=== PATIENT | male | born 1950 | race African-American/Black ===

== ENCOUNTER 2017-07-24 09:34 | Emergency (ER) | payer SELFPAY ==
[~2017-07-24] VITALS: Ht 182.9 cm; Wt 116.1 kg
[2017-07-24 09:45] VITALS: BP 124/80
--- NOTE | 2017-07-24 10:03 | Emergency Room Report ---
History of Present Illness General Chief Complaint: Male Urogenital Problems Source: Patient Present Illness HPI 67-year-old male presents ED complaining of urinary retention. States he has "prostate problems". States he has been unable to urinate for "a long time". After further prompting patient states he has not been able to urinate for 1 day. Pain is sharp, 10 out of 10, suprapubic, nonradiating. Denies flank pain. Denies nausea or vomiting. States that he has required Heck catheter in the past. States that he has taken medication previously. Does not have a urologist at this time. No other aggravating or relieving factors. Denies any other associated symptoms Allergies: Coded Allergies: No Known Allergies (Unverified , 07/24/17) Patient History Past Medical History: other - BPH Past Surgical History: none Pertinent Family History: none Social History: Denies: smoking, alcohol use, drug use Immunizations: UTD Reviewed Nursing Documentation: PMH: Agreed; PSxH: Agreed Nursing Documentation-PMH Past Medical History: No History, Except For Review of Systems All Other Systems: negative except mentioned in HPI Physical Exam Vital Signs Date Time Temp Pulse Resp B/P (MAP) Pulse Ox O2 Delivery O2 Flow Rate FiO2 07/24/17 09:40 98.3 140 20 190/93 94 Room Air 98.2 Sp02 EP Interpretation: reviewed, normal General Appearance: alert, GCS 15, non-toxic, mild distress Head: normocephalic, atraumatic Eyes: bilateral eye normal inspection, bilateral eye PERRL ENT: hearing grossly normal, normal pharynx, no angioedema, normal voice Neck: full range of motion, supple/symm/no masses Respiratory: chest non-tender, lungs clear, normal breath sounds, speaking full sentences Cardiovascular #1: regular rate, rhythm, no edema Cardiovascular #2: 2+ carotid (R), 2+ carotid (L), 2+ radial (R), 2+ radial (L) , 2+ dorsalis pedis (R), 2+ dorsalis pedis (L) Gastrointestinal: normal bowel sounds, non tender, soft, non-distended, no guarding, no rebound Rectal: deferred Genitourinary: normal inspection, no CVA tenderness, other - suprapubic tenderness Musculoskeletal: back normal, gait/station normal, normal range of motion, non- tender Neurologic: alert, oriented x3, responsive, motor strength/tone normal, sensory intact, speech normal Psychiatric: judgement/insight normal, memory normal, mood/affect normal, no suicidal/homicidal ideation Reflexes: 3+ bicep (R), 3+ bicep (L), 3+ tricep (R), 3+ tricep (L), 3+ knee (R) , 3+ knee (L) Skin: normal color, no rash, warm/dry, well hydrated Lymphatic: no adenopathy Medical Decision Making Diagnostic Impression: Primary Impression: Urinary retention due to benign prostatic hyperplasia ER Course Hospital Course 67-year-old M presents to ED complaining of urinary retention. h/o BPH Differential diagnoses include: obstruction, UTI, BPH Clinical course Patient placed on stretcher. After initial history and physical I ordered heck cather with immediate relief of obstruction On reassessment patient feels better. Initially tachycardic which resolved. we will discharge on flomax, provide urology referral Diagnosis - urinary retention due to BPH Stable and discharged home with heck + leg bag, flomax, enema. Instructed to followup with PMD/urologist. Return to ED if symptoms recur or worsen Last Vital Signs Date Time Temp Pulse Resp B/P (MAP) Pulse Ox O2 Delivery O2 Flow Rate FiO2 07/24/17 09:40 98.3 140 20 190/93 94 Room Air 98.2 Status: improved Disposition: HOME, SELF-CARE Condition: Stable Scripts Na Phos,M-B/Na Phos,Di-Ba* (FLEET ENEMA*) 133 Ml Enema 133 ML RECTAL DAILY, #133 ML 0 Refills Prov: Eleuterio Lugo MD 07/24/17 Tamsulosin HCl (Flomax) 0.4 Mg Cap.er.24h 0.4 MG ORAL DAILY, #10 CAP Prov: Eleuterio Lugo MD 07/24/17 Referrals: NOT CHOSEN [facility]/,REFERRING (PCP) Eleuterio Lugo MD July 24, 2017 10:03
[2017-07-24] MEDS ORDERED: Norco 5mg/325mg tab ORAL ONE (10:15)
[2017-07-24] MEDS ORDERED: FLOMAX0.4 MG ORAL (10:17)
[2017-07-24] MEDS ORDERED: FLEET ENEMA133 ML RECTAL (10:17)
[2017-07-24 10:49] VITALS: BP 128/74
== END 2017-07-24 10:50 | disposition home or self-care (01) ==
LOC: EMR 09:49
DX: N40.1 Benign prostatic hyperplasia with lower urinary tract symptoms (principal); R33.8 Other retention of urine
CPT/HCPCS: 99284

== ENCOUNTER 2017-07-28 21:29 | Emergency (ER) | payer OTHER ==
[~2017-07-28] VITALS: Ht 182.9 cm; Wt 117.9 kg
[~2017-07-28 21:29] MED LIST: FLEET ENEMA133 ML RECTAL; FLOMAX0.4 MG ORAL
[2017-07-28] MEDS ORDERED: LANTUS SOL100 UNIT/1 SUBQ (21:38)
[2017-07-28] MEDS ORDERED: GABAPENTIN100 MG ORAL (21:38)
[2017-07-28] MEDS ORDERED: LISINOPRIL5 MG ORAL (21:38)
[2017-07-28] MEDS ORDERED: METFORMIN HCL500 M1 ORAL (21:38)
[2017-07-28 22:52] LABS: APPEARANCE,URINE SLIGHTLY CLOUDY; BILIRUBIN, URINE NEGATIVE (NEGATIVE); COLOR,URINE PALE YELLOW; GLUCOSE, URINE (UA) NEGATIVE (NEGATIVE); KETONES,URINE NEGATIVE (NEGATIVE); LEUKOCYTE ESTERASE ,URINE 3+ (NEGATIVE); NITRITE,URINE POSITIVE (NEGATIVE); PH,URINE 8 (4.5-8.0); PROTEIN,URINE 3+ (NEGATIVE); UROBILINOGEN,URINE NORMAL MG/DL (0.0-1.0)
[2017-07-28] MEDS ORDERED: CEPHALEXIN500 MG ORAL (23:06)
--- NOTE | 2017-07-28 23:13 | Emergency Room Report ---
History of Present Illness General Chief Complaint: Male Urogenital Problems Source: Patient Present Illness HPI 67-year-old male presenting with dysuria and suprapubic pain. Patient had Noel inserted a few days ago for BPH. Now complaining of pain with any urination. No fever no chills. No other complaints Allergies: Coded Allergies: No Known Allergies (Unverified , 07/24/17) Patient History Past Medical History: see triage record Past Surgical History: none Pertinent Family History: none Reviewed Nursing Documentation: PMH: Agreed; PSxH: Agreed Nursing Documentation-PMH Hx Diabetes: Yes Review of Systems All Other Systems: negative except mentioned in HPI Physical Exam Vital Signs Date Time Temp Pulse Resp B/P (MAP) Pulse Ox O2 Delivery O2 Flow Rate FiO2 07/28/17 21:33 98.4 80 18 174/93 98 Room Air 98.4 Sp02 EP Interpretation: reviewed, normal General Appearance: alert, GCS 15, non-toxic, mild distress Head: normocephalic, atraumatic Eyes: bilateral eye normal inspection, bilateral eye PERRL, bilateral eye EOMI ENT: normal ENT inspection, normal pharynx, normal voice, moist mucus membranes Neck: normal inspection, full range of motion, supple Respiratory: normal inspection, lungs clear, normal breath sounds, no respiratory distress, no retraction, no wheezing, speaking full sentences, chest symmetrical Cardiovascular #1: normal inspection, regular rate, rhythm, no edema, normal capillary refill Cardiovascular #2: 2+ radial (R), 2+ radial (L) Gastrointestinal: other - Suprapubic tenderness, Noel in place, draining clear suzanne urine Genitourinary: no CVA tenderness Musculoskeletal: normal inspection, back normal, normal range of motion, non- tender Neurologic: normal inspection, alert, oriented x3, responsive, motor strength/ tone normal, sensory intact, normal gait, speech normal Psychiatric: normal inspection, judgement/insight normal, memory normal Skin: normal inspection, normal color, no rash, warm/dry, well hydrated, normal turgor Medical Decision Making Diagnostic Impression: Primary Impression: UTI (urinary tract infection) Additional Impression: Urinary retention ER Course 67-year-old male with suprapubic pain DDX: Likely UTI at this time exam benign with the exception of mild suprapubic tenderness. He is nontoxic appearing Plan: Noel reinsertion UA ER course: Patient has remained stable during ED stay. Noel reinserted attach a leg bag Patient noted to have UTI. He is well-appearing otherwise, able to tolerate by mouth Disposition: Patient is to be discharged to home. Prescriptions given are Keflex Patient is instructed to follow up with their primary care doctor within 5 days. Patient is instructed to follow up with urology within 3 days. Strict return precautions discussed with patient such as fever, chills, worsening/severe pain, chest pain, SOB, nausea, vomiting, which may indicate severe illness. Patient verbalizes understanding and agrees with plan. Please note that this Emergency Department Report was dictated using [employer] nurse technology software, occasionally this can lead to erroneous entry secondary to interpretation by the dictation equipment Last Vital Signs Date Time Temp Pulse Resp B/P (MAP) Pulse Ox O2 Delivery O2 Flow Rate FiO2 07/28/17 21:33 98.4 80 18 174/93 98 Room Air 98.4 Disposition: HOME, SELF-CARE Condition: Improved Scripts Cephalexin* (KEFLEX*) 500 Mg Capsule 500 MG ORAL EVERY 6 HOURS for 7 Days, #28 CAP Prov: Christopher Rodney M.D. 07/28/17 Patient Instructions: Benign Prostatic Hypertrophy Additional Instructions: PLEASE FOLLOW UP WITH UROLOGY IN 1 WEEK Christopher Rodney M.D. July 28, 2017 23:13
[2017-07-28 23:18] VITALS: BP 176/92
== END 2017-07-28 23:15 | disposition home or self-care (01) ==
LOC: EMR 21:45
DX: N39.0 Urinary tract infection, site not specified (principal); R33.9 Retention of urine, unspecified; E11.9 Type 2 diabetes mellitus without complications
CPT/HCPCS: 81001; 99283

== ENCOUNTER 2017-08-06 17:41 | Emergency (ER) | payer OTHER ==
[~2017-08-06] VITALS: Ht 188 cm; Wt 120.7 kg
[~2017-08-06 17:41] MED LIST changes: +CEPHALEXIN500 MG ORAL; +GABAPENTIN100 MG ORAL; +LANTUS SOL100 UNIT/1 SUBQ; +LISINOPRIL5 MG ORAL; +METFORMIN HCL500 M1 ORAL
[2017-08-06 18:02] VITALS: BP 132/85
[2017-08-06] MEDS ORDERED: Norco 5mg/325mg tab ORAL ONE (18:30)
[2017-08-06 18:52] LABS: APPEARANCE,URINE SLIGHTLY CLOUDY; BILIRUBIN, URINE NEGATIVE (NEGATIVE); GLUCOSE, URINE (UA) NEGATIVE (NEGATIVE); KETONES,URINE NEGATIVE (NEGATIVE); LEUKOCYTE ESTERASE ,URINE 3+ (NEGATIVE); NITRITE,URINE POSITIVE (NEGATIVE); PH,URINE 5 (4.5-8.0); PROTEIN,URINE 2+ (NEGATIVE); UROBILINOGEN,URINE NORMAL MG/DL (0.0-1.0)
[2017-08-06 18:53] LABS: COLOR,URINE YELLOW
[2017-08-06] MEDS ORDERED: Levofloxacin 500mg tab ORAL ONE (20:15)
--- NOTE | 2017-08-06 20:17 | Emergency Room Report ---
History of Present Illness General Chief Complaint: General Complaint Source: Patient Present Illness HPI Patient had heck placed 07/24 for urinary retention. Was started on flomax at that time. Returned 07/28 with dysuria and started on antibiotics - keflex - (culture not done). H/O BPH. Still with dysuria and pain with heck and wants it out. Pain rated at 9/10. No fevers, chills, back pain, flank pain, hematuria. No NVD, chest pain, dyspnea. Moving bowels without problems. H/O diabetes. On metformin and insulin. Allergies: Coded Allergies: No Known Allergies (Unverified , 07/24/17) Patient History Past Medical History: see triage record Social History: Denies: smoking, alcohol use, drug use Social History Narrative recently out of [facility]p Reviewed Nursing Documentation: PMH: Agreed; PSxH: Agreed Nursing Documentation-PMH Past Medical History: No History, Except For Hx Diabetes: Yes Review of Systems All Other Systems: negative except mentioned in HPI Physical Exam Vital Signs Date Time Temp Pulse Resp B/P (MAP) Pulse Ox O2 Delivery O2 Flow Rate FiO2 08/06/17 17:52 97.5 83 19 132/85 96 Room Air 97.5 Sp02 EP Interpretation: reviewed, normal General Appearance: well appearing, no apparent distress, GCS 15 Head: normocephalic, atraumatic Eyes: bilateral eye normal inspection, bilateral eye PERRL ENT: hearing grossly normal, normal voice, moist mucus membranes Neck: full range of motion, supple Respiratory: no respiratory distress, speaking full sentences Gastrointestinal: normal inspection, normal bowel sounds, non tender Genitourinary: other - heck present, no discharge, uncircumcised Musculoskeletal: no calf tenderness Neurologic: alert, normal gait, grossly normal Psychiatric: mood/affect normal Skin: no rash Medical Decision Making Diagnostic Impression: Primary Impression: UTI (urinary tract infection) Qualified Codes: T83.511D - Infection and inflammatory reaction due to indwelling urethral catheter, subsequent encounter; N39.0 - Urinary tract infection, site not specified Additional Impressions: Diabetes Qualified Codes: E11.9 - Type 2 diabetes mellitus without complications; Z79.4 - keno terminal operator (current) use of insulin BPH (benign prostatic hyperplasia) Qualified Codes: N40.1 - Benign prostatic hyperplasia with lower urinary tract symptoms ER Course Patient with dysuria with Heck post use of Keflex for UTI. DDx: resistant infection, heck related UTI, prostatitis amongst others. No evidence of pyelonephritis. Discussed that might need heck replaced if removed. Needs UA with cultures, pyridium and analgesia. Able to urinate after heck removal. Accucheck 121. UA with pyuria. Levaquin begun here. Pain is improved. Patient stable for outpatient observation and treatment Laboratory Tests Test 08/06/17 18:39 Urine Color Yellow Urine Appearance Slightly cloudy Urine pH 5 (4.5-8.0) Urine Specific [place] 1.015 (1.005-1.035) Urine Protein 2+ (NEGATIVE) H Urine Glucose (UA) Negative (NEGATIVE) Urine Ketones Negative (NEGATIVE) Urine Occult Blood 5+ (NEGATIVE) H Urine Nitrite Positive (NEGATIVE) H Urine Bilirubin Negative (NEGATIVE) Urine Urobilinogen Normal MG/DL (0.0-1.0) Urine Leukocyte Esterase 3+ (NEGATIVE) H Urine RBC Tntc /HPF (0 - 0) H Urine WBC Tntc /HPF (0 - 0) H Urine Squamous Epithelial Cells None /LPF (NONE/OCC) Urine Bacteria Moderate /HPF (NONE) H Last Vital Signs Date Time Temp Pulse Resp B/P (MAP) Pulse Ox O2 Delivery O2 Flow Rate FiO2 08/06/17 20:45 97.5 78 19 132/85 96 Room Air 97.5 Status: improved Disposition: HOME, SELF-CARE Condition: Improved Scripts Phenazopyridine Hcl* (PYRIDIUM*) 100 Mg Tablet 100 MG ORAL THREE TIMES A DAY, #9 TAB Prov: Jaspreet Johnson M.D. 08/06/17 Hydrocodone Bit/Acetaminophen 5-325* (NORCO 5-325*) 1 Each Tablet 1 TAB ORAL Q6H PRN for For Pain, #10 TAB 0 Refills Prov: Jaspreet Johnson M.D. 08/06/17 Levofloxacin* (LEVAQUIN*) 500 Mg Tablet 500 MG ORAL DAILY, #7 TAB Prov: Jaspreet Johnson M.D. 08/06/17 Referrals: Eric ARRIETA,REFERRING (PCP) Jaspreet Johsnon M.D. Aug 06, 2017 20:17
[2017-08-06] MEDS ORDERED: NORCO 5-325 TA1 EACH ORAL (20:24)
[2017-08-06] MEDS ORDERED: PHENAZOPYRIDIN100 MG ORAL (20:24)
[2017-08-06] MEDS ORDERED: LEVAQUIN500 MG ORAL (20:24)
[2017-08-06 20:45] VITALS: BP 132/85
== END 2017-08-06 20:30 | disposition home or self-care (01) ==
LOC: EMR 18:48
DX: T83.511D Infection and inflammatory reaction due to indwelling urethral catheter, subsequent encounter (principal); N39.0 Urinary tract infection, site not specified; E11.9 Type 2 diabetes mellitus without complications; Z79.4 Long term (current) use of insulin; N40.1 Benign prostatic hyperplasia with lower urinary tract symptoms; Y84.6 Urinary catheterization as the cause of abnormal reaction of the patient, or of later complication, without mention of misadventure at the time of the procedure
CPT/HCPCS: 81003; 82962; 87086; 87181; 99284

== ENCOUNTER 2017-11-09 15:36 | Emergency (ER) | payer OTHER ==
[~2017-11-09] VITALS: Ht 182.9 cm; Wt 113.4 kg
[~2017-11-09 15:36] MED LIST changes: +LEVAQUIN500 MG ORAL; +NORCO 5-325 TA1 EACH ORAL; +PHENAZOPYRIDIN100 MG ORAL
[2017-11-09 15:48] VITALS: BP 153/95
[2017-11-09] MEDS ORDERED: Norco 5mg/325mg tab ORAL ONE (16:15)
[2017-11-09] MEDS ORDERED: Phenazopyridine 200mg tab ORAL ONE (16:15)
[2017-11-09 17:06] LABS: APPEARANCE,URINE CLEAR; BILIRUBIN, URINE NEGATIVE (NEGATIVE); COLOR,URINE PALE YELLOW; GLUCOSE, URINE (UA) 1+ (NEGATIVE); KETONES,URINE NEGATIVE (NEGATIVE); LEUKOCYTE ESTERASE ,URINE NEGATIVE (NEGATIVE); NITRITE,URINE NEGATIVE (NEGATIVE); PH,URINE 6 (4.5-8.0); PROTEIN,URINE 2+ (NEGATIVE); UROBILINOGEN,URINE NORMAL MG/DL (0.0-1.0)
--- NOTE | 2017-11-09 17:55 | Emergency Room Report ---
History of Present Illness General Chief Complaint: Male Urogenital Problems Source: Patient (Peggy Phan) Present Illness HPI 67-year-old male presents to the emergency department complaining of ability to urinate 24 hours in addition to distended bladder, 10 out of 10 in severity pain and dysuria. Patient reports dysuria preceded inability to urinate. Patient also states that he is out of his medications for which she is prescribed due to having BPH and high blood pressure. He states his that this happened once in the past. He has a urologist. Denies fevers, chills, nausea, vomiting or penile d/c. Denies constipation. (Peggy Phan) Allergies: Coded Allergies: No Known Allergies (Unverified , 07/24/17) Patient History Past Medical History: see triage record, other - BPH Past Surgical History: none Pertinent Family History: none Reviewed Nursing Documentation: PMH: Agreed; PSxH: Agreed (Peggy Phan) Nursing Documentation-PMH Hx Hypertension: Yes Hx Diabetes: Yes (Peggy Phan) Review of Systems All Other Systems: negative except mentioned in HPI (Peggy Phan) Physical Exam Vital Signs Date Time Temp Pulse Resp B/P (MAP) Pulse Ox O2 Delivery O2 Flow Rate FiO2 11/09/17 15:41 98.1 87 16 153/95 95 Room Air 98.1 Sp02 EP Interpretation: reviewed, normal General Appearance: no apparent distress, alert, GCS 15, non-toxic Head: normocephalic, atraumatic Eyes: bilateral eye normal inspection, bilateral eye PERRL ENT: hearing grossly normal, normal voice Neck: full range of motion Respiratory: lungs clear, normal breath sounds, speaking full sentences Cardiovascular #1: regular rate, rhythm, no edema Gastrointestinal: normal bowel sounds, distended - lower abdominal distention with tenderness Musculoskeletal: back normal, gait/station normal, normal range of motion, non- tender Neurologic: alert, oriented x3, responsive, motor strength/tone normal, sensory intact, speech normal, grossly normal Psychiatric: judgement/insight normal Skin: normal color, no rash, warm/dry, well hydrated Lymphatic: no adenopathy (Peggy Phan) Medical Decision Making PA Attestation Dr. Keller is my supervising Physician whom patient management has been discussed with. (Peggy Phna) Medicare Attestation The history of Denny Mendiola has been reviewed and management options for him have been examined and discussed by Laura Keller. I have personally examined and interviewed the patient. (Laura Keller DO) Diagnostic Impression: Primary Impression: Urinary retention Additional Impression: Bladder obstruction ER Course 67-year-old male presents to the emergency department complaining of ability to urinate 24 hours in addition to distended bladder, 10 out of 10 in severity pain and dysuria. Patient reports dysuria preceded inability to urinate. Patient also states that he is out of his medications for which she is prescribed due to having BPH and high blood pressure. He states his that this happened once in the past. He has a urologist. Denies fevers, chills, nausea, vomiting or penile d/c. Denies constipation. Ddx considered but are not limited to the BPH, urinary obstruction, UTI, prostatitis, just to name a few Vital signs: are WNL, pt. is afebrile H&PE are most consistent with urinary obstruction, non toxic in appearance ORDERS: -UA: unremarkable ED INTERVENTIONS: - Pyridium PO -[place] PO - Heck Catheter is inserted, 660cc of urine was removed. pt. is no longer distended. D/w pt. need for urgent Urology follow up . D/w pt. to leave in heck catheter until urology eval. DISCHARGE: At this time pt. is stable for d/c to home. Will provide printed patient care instructions, and any necessary prescriptions. Care plan and follow up instructions have been discussed with the patient prior to discharge. Labs Test 11/09/17 16:05 Urine Color Pale yellow Urine Appearance Clear Urine pH 6 (4.5-8.0) Urine Specific [place] 1.010 (1.005-1.035) Urine Protein 2+ (NEGATIVE) Urine Glucose (UA) 1+ (NEGATIVE) Urine Ketones Negative (NEGATIVE) Urine Blood 4+ (NEGATIVE) Urine Nitrite Negative (NEGATIVE) Urine Bilirubin Negative (NEGATIVE) Urine Urobilinogen Normal MG/DL (0.0-1.0) Urine Leukocyte Esterase Negative (NEGATIVE) Urine RBC 15-20 /HPF (0 - 0) Urine WBC 0-2 /HPF (0 - 0) Urine Squamous Epithelial Cells None /LPF (NONE/OCC) Urine Amorphous Sediment Few /LPF (NONE) Urine Bacteria Occasional /HPF (NONE) (Peggy Phan) Last Vital Signs Date Time Temp Pulse Resp B/P (MAP) Pulse Ox O2 Delivery O2 Flow Rate FiO2 11/09/17 16:08 98.1 11/09/17 15:48 78 16 153/95 95 Room Air (Peggy Phan) Disposition: HOME, SELF-CARE Condition: Stable Scripts Lisinopril (LISINOPRIL*) 5 Mg Tablet 5 MG ORAL DAILY, #30 TAB Prov: Peggy Phan 11/09/17 Tamsulosin HCl (Flomax) 0.4 Mg Cap.er.24h 0.4 MG ORAL DAILY, #30 CAP Prov: Peggy Phan 11/09/17 Referrals: Eric ARRIETA,REFERRING (PCP) Patient Instructions: Acute Urinary Retention, Male Additional Instructions: Take medications as directed. Follow up with a UROLOGIST within 3-5 days, even if your symptoms have resolved. --Please review list of primary care clinics, if you do not already have a primary care provider Return sooner to ED if new symptoms occur, or current symptoms become worse. - Please note that this Emergency Department Report was dictated using [employer] manager technology software, occasionally this can lead to erroneous entry secondary to interpretation by the dictation equipment. Peggy Phan Nov 09, 2017 17:55 Laura Keller DO Nov 11, 2017 08:05
[2017-11-09] MEDS ORDERED: LISINOPRIL5 MG ORAL (18:02)
[2017-11-09] MEDS ORDERED: FLOMAX0.4 MG ORAL (18:02)
[2017-11-09 18:23] VITALS: BP 145/86
== END 2017-11-09 18:25 | disposition home or self-care (01) ==
LOC: EMR 16:48
DX: N32.0 Bladder-neck obstruction (principal); R33.9 Retention of urine, unspecified; E11.9 Type 2 diabetes mellitus without complications; I10 Essential (primary) hypertension
CPT/HCPCS: 51702; 81003; 99284

== ENCOUNTER 2017-11-10 14:08 | Emergency (ER) | payer OTHER ==
[~2017-11-10] VITALS: Ht 182.9 cm; Wt 113.4 kg
[2017-11-10] MEDS ORDERED: Tamsulosin 0.4mg cap ORAL ONE (15:00)
[2017-11-10 15:18] VITALS: BP 150/91
--- NOTE | 2017-11-11 14:54 | Emergency Room Report ---
History of Present Illness General Chief Complaint: Male Urogenital Problems Source: Patient Present Illness HPI 67-year-old male presents ED for evaluation. Patient is here to have his Heck catheter removed. States it was placed 2 days ago. History of BPH. Patient states he spoke to her urologist yesterday who told him to have the Heck catheter removed before his appointment. Patient is requesting have a Heck catheter removed. Patient was given refills of his Flomax and lisinopril. States that he did not start the medication yet. Denies any pain. Denies any flank pain. No other aggravating relieving factors. Denies any other associated symptoms Allergies: Coded Allergies: No Known Allergies (Unverified , 07/24/17) Patient History Past Medical History: DM, HTN Past Surgical History: none Pertinent Family History: none Social History: Denies: smoking, alcohol use, drug use Immunizations: UTD Reviewed Nursing Documentation: PMH: Agreed; PSxH: Agreed Nursing Documentation-PMH Hx Hypertension: Yes Hx Diabetes: Yes Review of Systems All Other Systems: negative except mentioned in HPI Physical Exam Vital Signs Date Time Temp Pulse Resp B/P (MAP) Pulse Ox O2 Delivery O2 Flow Rate FiO2 11/10/17 14:22 97.9 87 21 150/91 98 Room Air 97.9 Sp02 EP Interpretation: reviewed, normal General Appearance: no apparent distress, alert, GCS 15, non-toxic Head: normocephalic Eyes: bilateral eye normal inspection, bilateral eye PERRL ENT: normal ENT inspection Neck: normal inspection Respiratory: normal inspection Cardiovascular #1: normal inspection Gastrointestinal: normal inspection Rectal: deferred Genitourinary: no CVA tenderness, other - heck catheter in place Musculoskeletal: normal inspection Neurologic: alert, oriented x3, responsive, motor strength/tone normal, sensory intact, speech normal Psychiatric: normal inspection Skin: normal inspection Lymphatic: normal inspection Medical Decision Making Diagnostic Impression: Primary Impression: Encounter for Heck catheter removal ER Course Hospital Course 67 yo M presents to ED requesting heck catheter removal Differential diagnoses include: obstruction, UTI, BPH Clinical course Patient placed on stretcher. After initial history and physical I discussed options with the patient. I explained that it is preferable for the urologist to remove the Heck catheter. I also explained that without having started the Flomax there is no guarantee that he will be able to urinate after the Heck is removed. Patient displays understanding. Still wishes to have Heck catheter removed. Heck catheter is removed here. Given dose of Flomax here. Patient instructed to follow-up with urology as soon as possible Diagnosis - encounter for heck catheter removal Stable and discharged home. Instructed to followup with PMD/urologist. Return to ED if symptoms recur or worsen Last Vital Signs Date Time Temp Pulse Resp B/P (MAP) Pulse Ox O2 Delivery O2 Flow Rate FiO2 11/10/17 15:18 36.38699 21 150/91 98 Room Air 208.2 11/10/17 14:22 87 Status: improved Disposition: HOME, SELF-CARE Condition: Stable Referrals: [facility],REFERRING (PCP) Patient Instructions: Benign Prostatic Hyperplasia Additional Instructions: take your flomax as prescribed. follow up with urology Eleuterio Lugo MD Nov 11, 2017 14:54
== END 2017-11-10 15:18 | disposition home or self-care (01) ==
LOC: EMR 15:03
DX: Z46.6 Encounter for fitting and adjustment of urinary device (principal); I10 Essential (primary) hypertension; E11.9 Type 2 diabetes mellitus without complications
CPT/HCPCS: 99282

== ENCOUNTER 2017-12-13 06:08 | Emergency (ER) | payer OTHER ==
[~2017-12-13] VITALS: Ht 182.9 cm; Wt 117.9 kg
[2017-12-13 06:20] VITALS: BP 140/100
[2017-12-13] MEDS ORDERED: Ketorolac 60mg Inj IM ONE (07:00)
[2017-12-13 07:12] LABS: APPEARANCE,URINE CLEAR; BILIRUBIN, URINE NEGATIVE (NEGATIVE); COLOR,URINE PALE YELLOW; GLUCOSE, URINE (UA) NEGATIVE (NEGATIVE); KETONES,URINE NEGATIVE (NEGATIVE); LEUKOCYTE ESTERASE ,URINE NEGATIVE (NEGATIVE); NITRITE,URINE NEGATIVE (NEGATIVE); PH,URINE 5 (4.5-8.0); PROTEIN,URINE 2+ (NEGATIVE); UROBILINOGEN,URINE NORMAL MG/DL (0.0-1.0)
--- NOTE | 2017-12-13 07:19 | Emergency Room Report ---
History of Present Illness General Chief Complaint: Male Urogenital Problems Source: Patient Present Illness HPI This patient has a history of BPH. He is on Flomax. He states that since around 5 PM yesterday has had difficulty urinating. He states since last night he has had suprapubic pain and inability to urinate. He denies fever or chills. He denies nausea or vomiting. He states he has had this issue previously. He has seen a urologist. He has no other complaints. Allergies: Coded Allergies: No Known Allergies (Unverified , 07/24/17) Patient History Past Medical History: see triage record, DM, HTN, other - BPH Social History: Denies: smoking, alcohol use, drug use Reviewed Nursing Documentation: PMH: Agreed; PSxH: Agreed Nursing Documentation-PMH Past Medical History: No History, Except For Hx Hypertension: Yes Hx Diabetes: Yes Review of Systems All Other Systems: negative except mentioned in HPI Physical Exam Vital Signs Date Time Temp Pulse Resp B/P (MAP) Pulse Ox O2 Delivery O2 Flow Rate FiO2 12/13/17 06:11 98.0 99 18 177/116 96 Room Air 98.1 Sp02 EP Interpretation: reviewed, normal General Appearance: no apparent distress, alert, GCS 15, non-toxic Head: normocephalic, atraumatic Eyes: bilateral eye normal inspection, bilateral eye PERRL ENT: hearing grossly normal, normal pharynx, no angioedema, normal voice Neck: full range of motion, supple/symm/no masses Respiratory: no respiratory distress, no retraction, no accessory muscle use, speaking full sentences Gastrointestinal: normal bowel sounds, no guarding, no rebound, tenderness - TTP supra-pubic region. Full. Rectal: deferred Musculoskeletal: back normal, gait/station normal, normal range of motion, non- tender Neurologic: alert, oriented x3, responsive, motor strength/tone normal, sensory intact, speech normal Psychiatric: judgement/insight normal, memory normal, mood/affect normal, no suicidal/homicidal ideation Skin: normal color, no rash, warm/dry, well hydrated Medical Decision Making Diagnostic Impression: Primary Impression: Urinary retention Additional Impression: BPH (benign prostatic hyperplasia) ER Course This patient has a history of BPH. He presents with urinary retention. A Noel catheter was placed with relief of his symptoms. 700 mL of clear yellow urine was obtained. There is no evidence of infection. The patient requested a refill of his Flomax. The patient was discharged with an indwelling Noel catheter and a leg bag. The patient was educated on the importance of following up closely with a urologist in addition to his primary care physician. He is given close return precautions and follow-up instructions. Laboratory Tests Test 12/13/17 06:34 Urine Color Pale yellow Urine Appearance Clear Urine pH 5 (4.5-8.0) Urine Specific Amelia 1.010 (1.005-1.035) Urine Protein 2+ (NEGATIVE) H Urine Glucose (UA) Negative (NEGATIVE) Urine Ketones Negative (NEGATIVE) Urine Blood 1+ (NEGATIVE) H Urine Nitrite Negative (NEGATIVE) Urine Bilirubin Negative (NEGATIVE) Urine Urobilinogen Normal MG/DL (0.0-1.0) Urine Leukocyte Esterase Negative (NEGATIVE) Urine RBC 0-2 /HPF (0 - 0) H Urine WBC 0 /HPF (0 - 0) Urine Squamous Epithelial Cells None /LPF (NONE/OCC) Urine Bacteria None /HPF (NONE) Last Vital Signs Date Time Temp Pulse Resp B/P (MAP) Pulse Ox O2 Delivery O2 Flow Rate FiO2 12/13/17 06:20 98.1 88 17 140/100 99 Room Air 98.1 Status: improved Disposition: HOME, SELF-CARE Condition: Stable Scripts Tamsulosin HCl (Flomax) 0.4 Mg Cap.er.24h 0.4 MG ORAL DAILY, #90 CAP Prov: Laura Keller DO 12/13/17 Referrals: [facility],REFERRING (PCP) Laura Keller DO Dec 13, 2017 07:19
[2017-12-13] MEDS ORDERED: FLOMAX0.4 MG ORAL (07:21)
[2017-12-13 08:12] VITALS: BP 134/87
[2017-12-13 08:16] VITALS: BP 150/95
== END 2017-12-13 08:16 | disposition home or self-care (01) ==
LOC: EMR 06:53
DX: N40.1 Benign prostatic hyperplasia with lower urinary tract symptoms (principal); R33.8 Other retention of urine; E11.9 Type 2 diabetes mellitus without complications; I10 Essential (primary) hypertension; F17.200 Nicotine dependence, unspecified, uncomplicated
CPT/HCPCS: 81003; 96372; 99283